=== PATIENT | female | born 1935 | race Caucasian/White ===

== ENCOUNTER 2020-03-10 15:01 | Emergency (ER) | payer OTHER ==
[~2020-03-10] VITALS: Ht 160 cm; Wt 63.5 kg
[2020-03-10] MEDS ORDERED: SODIUM CHLORIDE 0.9% 1,000 ML IV ONE (15:15)
[2020-03-10 16:35] LABS: Basophils # (auto) 0 10 ^3/uL (0-0.2); Basophils % (auto) 0.2 % (0.0-2.0); Eosinophils # (auto) 0 10 ^3/uL (0-0.8); Hematocrit 29.1 % (36.0-46.0); Hemoglobin 9.5 g/dL (12.2-16.2); Lymphocytes # (auto) 0.5 10 ^3/uL (0.4-5.4); Lymphocytes % (auto) 7.8 % (10.0-50.0); Mean Corpuscular Hemoglobin 30.8 pg (28.0-32.0); Mean Corpuscular Hgb Conc. 32.8 g/dL (32.0-36.0); Monocytes # (auto) 0.1 10 ^3/uL (0-1.3); Monocytes % (auto) 1.6 % (0.0-12.0); Neutrophils # (auto) 5.9 10 ^3/uL (1.6-8.6); Neutrophils % (auto) 90.4 % (37.0-80.0); Platelet Count (auto) 239 10^3/uL (140-450); Red Cell Distribution Width 15.2 % (11.8-14.3); White Blood Cell 6.6 10^3/uL (4.4-10.8)
[2020-03-10 16:49] LABS: INR 1.06 (0.9-1.15); Partial Thromboplastin Time 26.4 sec (23.0-31.2)
[2020-03-10 16:52] LABS: Chloride 106 mmol/L (98-107); Potassium 4.3 mmol/L (3.5-5.1); Sodium 136 mmol/L (136-145)
[2020-03-10 17:11] LABS: Alanine Aminotransferase 8 U/L (13-56); Albumin 3.1 g/dL (3.4-5.0); Alkaline Phosphatase 40 U/L (45-117); Anion Gap 6 (5-15); Aspartate Aminotransferase 8 U/L (15-37); BUN/Creatinine Ratio 26.8; Bilirubin, Total 0.4 mg/dL (0.2-1.0); Blood Urea Nitrogen 19 mg/dL (7-18); Calcium 8.3 mg/dL (8.5-10.1); Carbon Dioxide 24 mmol/L (21-32); GFR African American 101 mL/min; GFR Non-African American 84 mL/min; Glucose 100 mg/dL (74-106); Total Protein 5.7 g/dL (6.4-8.2)
[2020-03-10 23:00] VITALS: BP 116/56
== END 2020-03-10 23:57 | disposition home or self-care (01) ==
LOC: ER 15:01 → EDBD 15:01 → ER 23:57
DX: K92.2 Gastrointestinal hemorrhage, unspecified (principal); I95.9 Hypotension, unspecified
CPT/HCPCS: 36415; 71045; 74176; 80053; 84484; 85025; 85610; 85730; 86850; 86900; 86901; 96360; 99285; J7030

== ENCOUNTER 2022-02-03 15:55 | Inpatient (IN) | payer OTHER ==
[~2022-02-03] VITALS: Ht 160 cm; Wt 36.5 kg
[2022-02-03] MEDS ORDERED: SODIUM CHLORIDE 0.9% 500 ML IVB ONE (16:15)
[2022-02-03 16:42] LABS: Basophils # (auto) 0 10 ^3/uL (0-0.2); Basophils % (auto) 0.1 % (0.0-2.0); Eosinophils # (auto) 0 10 ^3/uL (0-0.8); Hemoglobin 13.1 g/dL (12.2-16.2); Lymphocytes # (auto) 0.7 10 ^3/uL (0.4-5.4); Lymphocytes % (auto) 3.6 % (10.0-50.0); Mean Corpuscular Hemoglobin 27.5 pg (28.0-32.0); Mean Corpuscular Hgb Conc. 31.9 g/dL (32.0-36.0); Mean Corpuscular Volume 86.3 fL (80.0-100.0); Monocytes # (auto) 0.2 10 ^3/uL (0-1.3); Monocytes % (auto) 1.2 % (0.0-12.0); Neutrophils % (auto) 95.1 % (37.0-80.0); Red Blood Cells 4.76 10^6/uL (4.0-5.20); Red Cell Distribution Width 14.7 % (11.8-14.3)
[2022-02-03 17:00] LABS: Albumin 3.1 g/dL (3.4-5.0); Calcium 9.2 mg/dL (8.5-10.1); Potassium 4.5 mmol/L (3.5-5.1)
[2022-02-03 17:02] LABS: BUN/Creatinine Ratio 35.2; Bilirubin, Total 0.3 mg/dL (0.2-1.0); Total Protein 6.5 g/dL (6.4-8.2)
[2022-02-03] MEDS ORDERED: ALBUMIN 25% 100 ML IV ONE (22:00)
[2022-02-03] MEDS ORDERED: ACETAMINOPHEN 325 MG TAB PO PRN (22:00)
[2022-02-03] MEDS ORDERED: NITROGLYCERIN 0.4 MG SL TAB SL PRN (22:45)
[2022-02-03] MEDS ORDERED: MORPHINE SULFATE INJ 2 MG/ml SYRG IV PRN (22:45)
[2022-02-03] MEDS: MORPHINE SULFATE INJ 2 MG/ml SYRG IV PRN (22:46)
[2022-02-03] MEDS: ONDANSETRON HCL 4 MG/2 ML VIAL IV PRN (22:46)
[2022-02-03] MEDS: SODIUM CHLORIDE 0.9% 1,000 ML IV SCH (23:07)
[2022-02-03] MEDS: metroNIDAZOLE 500MG/100ML 100 ML IV SCH (23:07)
[2022-02-03] MEDS ORDERED: PANT40T PO (23:27)
[2022-02-03] MEDS ORDERED: GAB100C PO (23:27)
[2022-02-03] MEDS ORDERED: ALEN70TA74 PO (23:27)
[2022-02-03] MEDS ORDERED: ROSU1TAB15 PO (23:27)
[2022-02-03] MEDS ORDERED: ESCI5TAB33 PO (23:27)
[2022-02-03 23:57] VITALS: BP 109/52
[2022-02-04 05:14] VITALS: BP 102/50
[2022-02-04] MEDS: metroNIDAZOLE 500MG/100ML 100 ML IV SCH ×3 (06:34→22:51)
[2022-02-04 06:48] LABS: Basophils # (auto) 0 10 ^3/uL (0-0.2); Basophils % (auto) 0.2 % (0.0-2.0); Eosinophils # (auto) 0 10 ^3/uL (0-0.8); Eosinophils % (auto) 0.1 % (0.0-7.0); Hemoglobin 10.9 g/dL (12.2-16.2); Lymphocytes # (auto) 1.3 10 ^3/uL (0.4-5.4); Mean Corpuscular Hemoglobin 28.1 pg (28.0-32.0); Mean Corpuscular Volume 85.1 fL (80.0-100.0); Monocytes # (auto) 0.4 10 ^3/uL (0-1.3); Monocytes % (auto) 4.3 % (0.0-12.0); Neutrophils # (auto) 7.8 10 ^3/uL (1.6-8.6); Neutrophils % (auto) 81.4 % (37.0-80.0); Red Blood Cells 3.87 10^6/uL (4.0-5.20); Red Cell Distribution Width 14.7 % (11.8-14.3); White Blood Cell 9.6 10^3/uL (4.4-10.8)
[2022-02-04 06:54] LABS: Calcium 8.3 mg/dL (8.5-10.1); Potassium 4.2 mmol/L (3.5-5.1)
[2022-02-04 06:59] LABS: Albumin 3.1 g/dL (3.4-5.0); BUN/Creatinine Ratio 47.1; Bilirubin, Total 0.4 mg/dL (0.2-1.0); Total Protein 5.4 g/dL (6.4-8.2)
[2022-02-04 08:00] VITALS: BP 100/48
[2022-02-04 09:00] VITALS: BP 100/48
[2022-02-04] MEDS ORDERED: GASTROGRAFIN 120 ML SOL ONE (09:22)
[2022-02-04] MEDS: PANTOPRAZOLE 40 MG/10 ML VIAL INJ IV SCH (11:16)
[2022-02-04] MEDS: MORPHINE SULFATE INJ 2 MG/ml SYRG IV PRN (11:30)
[2022-02-04 13:00] VITALS: BP 117/57
[2022-02-04] MEDS: SODIUM CHLORIDE 0.9% 1,000 ML IV SCH (15:41)
[2022-02-04 16:59] VITALS: BP 125/56
[2022-02-04] MEDS ORDERED: cefTRIAXone 1GM/50ML D5W 50 ML IV ONE (21:15)
[2022-02-04 22:00] VITALS: BP 116/47
[2022-02-05 05:19] VITALS: BP 114/51
[2022-02-05] MEDS: metroNIDAZOLE 500MG/100ML 100 ML IV SCH ×3 (05:36→21:31)
[2022-02-05 05:48] LABS: Basophils # (auto) 0.1 10 ^3/uL (0-0.2); Basophils % (auto) 0.6 % (0.0-2.0); Eosinophils # (auto) 0 10 ^3/uL (0-0.8); Eosinophils % (auto) 0.1 % (0.0-7.0); Hematocrit 33.1 % (36.0-46.0); Hemoglobin 10.7 g/dL (12.2-16.2); Lymphocytes # (auto) 1.2 10 ^3/uL (0.4-5.4); Lymphocytes % (auto) 15.1 % (10.0-50.0); Mean Corpuscular Hemoglobin 27.8 pg (28.0-32.0); Mean Corpuscular Hgb Conc. 32.2 g/dL (32.0-36.0); Mean Corpuscular Volume 86.4 fL (80.0-100.0); Monocytes # (auto) 0.4 10 ^3/uL (0-1.3); Monocytes % (auto) 4.5 % (0.0-12.0); Neutrophils # (auto) 6.6 10 ^3/uL (1.6-8.6); Neutrophils % (auto) 79.7 % (37.0-80.0); Nucleated Red Blood Cells % 0.1 %; Red Blood Cells 3.83 10^6/uL (4.0-5.20); White Blood Cell 8.2 10^3/uL (4.4-10.8)
[2022-02-05 06:07] LABS: Albumin 2.9 g/dL (3.4-5.0); Calcium 8.2 mg/dL (8.5-10.1); Magnesium 1.7 mg/dL (1.6-2.6); Potassium 3.3 mmol/L (3.5-5.1)
[2022-02-05 06:11] LABS: BUN/Creatinine Ratio 45.2; Bilirubin, Total 0.3 mg/dL (0.2-1.0); Total Protein 5.3 g/dL (6.4-8.2)
[2022-02-05 09:00] VITALS: BP 110/53
[2022-02-05] MEDS: cefTRIAXone 1GM/50ML D5W 50 ML IV SCH (09:10)
[2022-02-05] MEDS: PANTOPRAZOLE 40 MG/10 ML VIAL INJ IV SCH (09:10)
[2022-02-05] MEDS: SODIUM CHLORIDE 0.9% 1,000 ML IV SCH ×2 (10:45→20:45)
[2022-02-05 12:55] VITALS: BP 114/50
[2022-02-05 13:24] LABS: Potassium 3.8 mmol/L (3.5-5.1)
[2022-02-05 13:30] LABS: BUN/Creatinine Ratio 43.8
[2022-02-05 17:00] VITALS: BP 111/53
[2022-02-05 22:00] VITALS: BP 102/33
[2022-02-06] MEDS: ONDANSETRON HCL 4 MG/2 ML VIAL IV PRN ×2 (00:25→05:17)
[2022-02-06 05:00] VITALS: BP 102/48
[2022-02-06] MEDS: metroNIDAZOLE 500MG/100ML 100 ML IV SCH ×3 (05:14→21:04)
[2022-02-06] MEDS: SODIUM CHLORIDE 0.9% 1,000 ML IV SCH ×2 (05:14→11:45)
[2022-02-06 06:02] LABS: Basophils # (auto) 0 10 ^3/uL (0-0.2); Basophils % (auto) 0.3 % (0.0-2.0); Eosinophils # (auto) 0 10 ^3/uL (0-0.8); Eosinophils % (auto) 0.3 % (0.0-7.0); Hematocrit 30.6 % (36.0-46.0); Lymphocytes # (auto) 1.1 10 ^3/uL (0.4-5.4); Lymphocytes % (auto) 16.8 % (10.0-50.0); Mean Corpuscular Hemoglobin 28.1 pg (28.0-32.0); Mean Corpuscular Hgb Conc. 32.5 g/dL (32.0-36.0); Mean Corpuscular Volume 86.3 fL (80.0-100.0); Monocytes # (auto) 0.3 10 ^3/uL (0-1.3); Monocytes % (auto) 4.8 % (0.0-12.0); Neutrophils % (auto) 77.8 % (37.0-80.0); Nucleated Red Blood Cells % 0.1 %; Red Blood Cells 3.55 10^6/uL (4.0-5.20); White Blood Cell 6.4 10^3/uL (4.4-10.8)
[2022-02-06 06:23] LABS: Calcium 7.6 mg/dL (8.5-10.1); Magnesium 1.7 mg/dL (1.6-2.6); Potassium 3.6 mmol/L (3.5-5.1)
[2022-02-06 06:25] LABS: BUN/Creatinine Ratio 36.7
[2022-02-06] MEDS: PANTOPRAZOLE 40 MG/10 ML VIAL INJ IV SCH (08:29)
[2022-02-06] MEDS: cefTRIAXone 1GM/50ML D5W 50 ML IV SCH (08:29)
[2022-02-06 09:00] VITALS: BP 112/47
[2022-02-06] MEDS: MAGNESIUM SULFATE 1GM/100ML 100 ML IV SCH ×2 (11:34→13:06)
[2022-02-06 13:00] VITALS: BP 108/46
[2022-02-06 16:55] VITALS: BP 137/61
[2022-02-06 22:10] VITALS: BP 126/62
[2022-02-07] MEDS: SODIUM CHLORIDE 0.9% 1,000 ML IV SCH (02:04)
[2022-02-07] MEDS: metroNIDAZOLE 500MG/100ML 100 ML IV SCH (05:06)
[2022-02-07 05:40] VITALS: BP 150/62
[2022-02-07 07:01] LABS: BUN/Creatinine Ratio 23.4; Calcium 7.5 mg/dL (8.5-10.1); Magnesium 2.3 mg/dL (1.6-2.6); Potassium 3.6 mmol/L (3.5-5.1)
[2022-02-07 08:10] VITALS: BP 113/62
[2022-02-07] MEDS: PANTOPRAZOLE 40 MG/10 ML VIAL INJ IV SCH (08:29)
[2022-02-07] MEDS: cefTRIAXone 1GM/50ML D5W 50 ML IV SCH (08:30)
[2022-02-07 09:00] VITALS: BP 113/62
[2022-02-07 13:00] VITALS: BP 157/71
== END 2022-02-07 13:49 | disposition home or self-care (01) | DRG 389 ==
LOC: EDBD 15:55 → ER 15:55 → OVERFLOW 22:43 → CENTRAL 23:19
PROVIDERS: ADMIT Nurse Practitioner Family; ATTEND Internal Medicine Geriatric Medicine
PROC: 0D9670Z Drainage of Stomach with Drainage Device, Via Natural or Artificial Opening (ICD-10-PCS; principal; 2022-02-03)
DX: K56.609 Unspecified intestinal obstruction, unspecified as to partial versus complete obstruction (principal); E44.0 Moderate protein-calorie malnutrition; E87.1 Hypo-osmolality and hyponatremia; D72.829 Elevated white blood cell count, unspecified; K57.30 Diverticulosis of large intestine without perforation or abscess without bleeding; K44.9 Diaphragmatic hernia without obstruction or gangrene; G62.9 Polyneuropathy, unspecified; Z20.822 Contact with and (suspected) exposure to COVID-19; Z96.642 Presence of left artificial hip joint; E78.5 Hyperlipidemia, unspecified; K21.9 Gastro-esophageal reflux disease without esophagitis; E87.6 Hypokalemia; D64.9 Anemia, unspecified; Z88.5 Allergy status to narcotic agent; Z88.8 Allergy status to other drugs, medicaments and biological substances; Z90.710 Acquired absence of both cervix and uterus
CPT/HCPCS: 36415; 71045; 74176; 74250; 80048; 80053; 80061; 82150; 83690; 83735; 85025; 87040; 87077; 87186; 96361; 96365; C9113; G0378; J0696; J2405; J3490; P9047

== ENCOUNTER 2022-02-11 10:17 | Inpatient (IN) | payer OTHER ==
[~2022-02-11] VITALS: Ht 160 cm; Wt 44.7 kg
[~2022-02-11 10:17] MED LIST: ALEN70TA74 PO; ESCI5TAB33 PO; GAB100C PO; PANT40T PO; ROSU1TAB15 PO
[2022-02-11] MEDS ORDERED: ONDANSETRON HCL 4 MG/2 ML VIAL IV ONE (11:15)
[2022-02-11] MEDS ORDERED: SODIUM CHLORIDE 0.9% 500 ML IVB ONE (11:15)
[2022-02-11] MEDS ORDERED: MORPHINE SULFATE 4 MG/ML SYR/VIAL IV ONE (11:15)
[2022-02-11 11:23] LABS: Basophils # (auto) 0 10 ^3/uL (0-0.2); Basophils % (auto) 0.4 % (0.0-2.0); Eosinophils # (auto) 0 10 ^3/uL (0-0.8); Eosinophils % (auto) 0.1 % (0.0-7.0); Hematocrit 42.7 % (36.0-46.0); Hemoglobin 13.7 g/dL (12.2-16.2); Lymphocytes # (auto) 1.2 10 ^3/uL (0.4-5.4); Lymphocytes % (auto) 13.7 % (10.0-50.0); Mean Corpuscular Hemoglobin 27.8 pg (28.0-32.0); Mean Corpuscular Hgb Conc. 32.2 g/dL (32.0-36.0); Mean Corpuscular Volume 86.4 fL (80.0-100.0); Monocytes # (auto) 0.3 10 ^3/uL (0-1.3); Neutrophils # (auto) 7.5 10 ^3/uL (1.6-8.6); Neutrophils % (auto) 82.8 % (37.0-80.0); Red Blood Cells 4.94 10^6/uL (4.0-5.20); Red Cell Distribution Width 15.5 % (11.8-14.3); White Blood Cell 9.1 10^3/uL (4.4-10.8)
[2022-02-11 11:38] LABS: INR 0.98 (0.9-1.15); Partial Thromboplastin Time 25.4 sec (24.6-33.4)
[2022-02-11 11:50] LABS: Albumin 2.8 g/dL (3.4-5.0); Calcium 8.6 mg/dL (8.5-10.1); Potassium 3.9 mmol/L (3.5-5.1)
[2022-02-11 12:41] LABS: BUN/Creatinine Ratio 16.7
[2022-02-11 12:42] LABS: Bilirubin, Total 0.3 mg/dL (0.2-1.0); Total Protein 6.2 g/dL (6.4-8.2)
[2022-02-11] MEDS: SODIUM CHLORIDE 0.9% 1,000 ML IV SCH (16:28)
[2022-02-11] MEDS: ONDANSETRON HCL 4 MG/2 ML VIAL IV PRN (16:28)
[2022-02-11] MEDS ORDERED: CLINIMIX PER PHARMACY 0 ML IV SCH (22:15)
[2022-02-11 23:42] VITALS: BP 107/35
[2022-02-12 05:24] LABS: Basophils # (auto) 0 10 ^3/uL (0-0.2); Basophils % (auto) 0.9 % (0.0-2.0); Eosinophils # (auto) 0 10 ^3/uL (0-0.8); Eosinophils % (auto) 0.3 % (0.0-7.0); Hematocrit 33.1 % (36.0-46.0); Hemoglobin 10.8 g/dL (12.2-16.2); Lymphocytes # (auto) 1.3 10 ^3/uL (0.4-5.4); Lymphocytes % (auto) 24.5 % (10.0-50.0); Mean Corpuscular Hemoglobin 28.4 pg (28.0-32.0); Mean Corpuscular Hgb Conc. 32.7 g/dL (32.0-36.0); Mean Corpuscular Volume 86.8 fL (80.0-100.0); Monocytes # (auto) 0.3 10 ^3/uL (0-1.3); Monocytes % (auto) 6.1 % (0.0-12.0); Neutrophils # (auto) 3.5 10 ^3/uL (1.6-8.6); Neutrophils % (auto) 68.2 % (37.0-80.0); Nucleated Red Blood Cells % 0.1 %; Red Blood Cells 3.81 10^6/uL (4.0-5.20); Red Cell Distribution Width 15.7 % (11.8-14.3); White Blood Cell 5.1 10^3/uL (4.4-10.8)
[2022-02-12 05:34] VITALS: BP 109/59
[2022-02-12] MEDS: SODIUM CHLORIDE 0.9% 1,000 ML IV SCH ×4 (05:38→21:42)
[2022-02-12 05:51] LABS: BUN/Creatinine Ratio 23.4; Calcium 7.8 mg/dL (8.5-10.1)
[2022-02-12 08:00] VITALS: BP 114/53
[2022-02-12 09:36] LABS: Albumin 2.4 g/dL (3.4-5.0); Calcium 8.1 mg/dL (8.5-10.1); Magnesium 2.2 mg/dL (1.6-2.6)
[2022-02-12 09:39] LABS: Bilirubin, Total 0.3 mg/dL (0.2-1.0); Phosphorus 4.3 mg/dL (2.5-4.90); Total Protein 4.8 g/dL (6.4-8.2)
[2022-02-12] MEDS ORDERED: GASTROGRAFIN 30 ML SOL ONE (10:09)
[2022-02-12] MEDS: PANTOPRAZOLE 40 MG/10 ML VIAL INJ IV SCH (10:10)
[2022-02-12] MEDS ORDERED: AZITHROMYCIN 500MG/ 250ML 250 ML IV ONE (10:45)
[2022-02-12] MEDS ORDERED: cefTRIAXone 1GM/50ML D5W 50 ML IV ONE (10:45)
[2022-02-12] MEDS ORDERED: AMINO ACID INFUSION IN D10W 1,000 ML IV NR (11:15)
[2022-02-12] MEDS ORDERED: ENOXAPARIN SOD 30 MG/0.3 ML SYRINGE SC ONE (11:30)
[2022-02-12] MEDS: InsuLIN REG 1unit/0.01ml Soln (100units/ml) SC SCH ×3 (12:00→23:49)
[2022-02-12 12:15] VITALS: BP 110/54
[2022-02-12] MEDS: ACCU-CHEK COMFORT CURVE STRIP VI SCH ×3 (12:16→23:49)
[2022-02-12] MEDS: DEXTROSE (50%) 50ML SYRG IV SCH (12:36)
[2022-02-12] MEDS: ONDANSETRON HCL 4 MG/2 ML VIAL IV PRN (14:45)
[2022-02-12 17:00] VITALS: BP 120/69
[2022-02-12] MEDS: MORPHINE SULFATE INJ 2 MG/ml SYRG IV PRN (18:00)
[2022-02-12] MEDS: AMINO ACID INFUSION IN D10W 1,000 ML IV NR (20:43)
[2022-02-12 22:00] VITALS: BP 116/62
[2022-02-13 05:00] VITALS: BP 109/59
[2022-02-13] MEDS: ACCU-CHEK COMFORT CURVE STRIP VI SCH ×4 (05:15→23:17)
[2022-02-13] MEDS: InsuLIN REG 1unit/0.01ml Soln (100units/ml) SC SCH ×4 (05:15→23:18)
[2022-02-13] MEDS: SODIUM CHLORIDE 0.9% 1,000 ML IV SCH (05:56)
[2022-02-13 06:01] LABS: Basophils # (auto) 0 10 ^3/uL (0-0.2); Basophils % (auto) 0.7 % (0.0-2.0); Eosinophils # (auto) 0 10 ^3/uL (0-0.8); Eosinophils % (auto) 0.3 % (0.0-7.0); Hematocrit 32.4 % (36.0-46.0); Hemoglobin 10.3 g/dL (12.2-16.2); Lymphocytes # (auto) 1.1 10 ^3/uL (0.4-5.4); Lymphocytes % (auto) 21.8 % (10.0-50.0); Mean Corpuscular Hemoglobin 28.1 pg (28.0-32.0); Mean Corpuscular Hgb Conc. 31.8 g/dL (32.0-36.0); Mean Corpuscular Volume 88.4 fL (80.0-100.0); Monocytes # (auto) 0.3 10 ^3/uL (0-1.3); Monocytes % (auto) 5.9 % (0.0-12.0); Neutrophils # (auto) 3.7 10 ^3/uL (1.6-8.6); Neutrophils % (auto) 71.3 % (37.0-80.0); Red Blood Cells 3.67 10^6/uL (4.0-5.20); White Blood Cell 5.2 10^3/uL (4.4-10.8)
[2022-02-13 06:28] LABS: Albumin 2.2 g/dL (3.4-5.0); BUN/Creatinine Ratio 28.3; Bilirubin, Total 0.3 mg/dL (0.2-1.0); Calcium 7.8 mg/dL (8.5-10.1); Magnesium 2.1 mg/dL (1.6-2.6); Phosphorus 3.8 mg/dL (2.5-4.90); Total Protein 4.5 g/dL (6.4-8.2)
[2022-02-13 08:05] VITALS: BP 104/51
[2022-02-13 09:51] VITALS: BP 128/60
[2022-02-13] MEDS: cefTRIAXone 1GM/50ML D5W 50 ML IV SCH (10:48)
[2022-02-13] MEDS: ENOXAPARIN SOD 30 MG/0.3 ML SYRINGE SC SCH (10:51)
[2022-02-13] MEDS: PANTOPRAZOLE 40 MG/10 ML VIAL INJ IV SCH (10:51)
[2022-02-13] MEDS: AZITHROMYCIN 500MG/ 250ML 250 ML IV SCH (12:32)
[2022-02-13 13:00] VITALS: BP 133/62
[2022-02-13 16:35] VITALS: BP 117/51
[2022-02-13] MEDS: AMINO ACID INFUSION IN D10W 1,000 ML IV NR (21:24)
[2022-02-13] MEDS: MORPHINE SULFATE INJ 2 MG/ml SYRG IV PRN (21:34)
[2022-02-13 22:00] VITALS: BP 128/56
[2022-02-14] VITALS (7 sets, daily range): BP systolic 107–141; BP diastolic 47–68
[2022-02-14] MEDS: MORPHINE SULFATE INJ 2 MG/ml SYRG IV PRN ×2 (02:18→22:49)
[2022-02-14 05:56] LABS: Basophils # (auto) 0 10 ^3/uL (0-0.2); Basophils % (auto) 0.6 % (0.0-2.0); Eosinophils # (auto) 0 10 ^3/uL (0-0.8); Eosinophils % (auto) 0.8 % (0.0-7.0); Hematocrit 31.6 % (36.0-46.0); Hemoglobin 10.4 g/dL (12.2-16.2); Lymphocytes # (auto) 1.2 10 ^3/uL (0.4-5.4); Lymphocytes % (auto) 27.2 % (10.0-50.0); Mean Corpuscular Hemoglobin 28.4 pg (28.0-32.0); Mean Corpuscular Hgb Conc. 32.8 g/dL (32.0-36.0); Mean Corpuscular Volume 86.4 fL (80.0-100.0); Monocytes # (auto) 0.3 10 ^3/uL (0-1.3); Monocytes % (auto) 6.8 % (0.0-12.0); Neutrophils # (auto) 2.9 10 ^3/uL (1.6-8.6); Neutrophils % (auto) 64.6 % (37.0-80.0); Red Blood Cells 3.65 10^6/uL (4.0-5.20); Red Cell Distribution Width 15.7 % (11.8-14.3); White Blood Cell 4.5 10^3/uL (4.4-10.8)
[2022-02-14] MEDS: InsuLIN REG 1unit/0.01ml Soln (100units/ml) SC SCH ×4 (06:00→23:27)
[2022-02-14 06:12] LABS: Albumin 2.1 g/dL (3.4-5.0); Calcium 7.4 mg/dL (8.5-10.1); Magnesium 1.7 mg/dL (1.6-2.6); Potassium 3.5 mmol/L (3.5-5.1)
[2022-02-14 06:15] LABS: BUN/Creatinine Ratio 43.1
[2022-02-14 06:17] LABS: Bilirubin, Total 0.3 mg/dL (0.2-1.0); Phosphorus 2.5 mg/dL (2.5-4.90); Total Protein 4.5 g/dL (6.4-8.2)
[2022-02-14] MEDS: ACCU-CHEK COMFORT CURVE STRIP VI SCH ×4 (06:56→23:27)
[2022-02-14] MEDS: cefTRIAXone 1GM/50ML D5W 50 ML IV SCH (09:14)
[2022-02-14] MEDS: PANTOPRAZOLE 40 MG/10 ML VIAL INJ IV SCH (09:14)
[2022-02-14] MEDS: ENOXAPARIN SOD 30 MG/0.3 ML SYRINGE SC SCH (10:00)
[2022-02-14] MEDS: AZITHROMYCIN 500MG/ 250ML 250 ML IV SCH (11:53)
[2022-02-14] MEDS ORDERED: POTASSIUM PHOSPHATE 22 MEQ in SODIUM CHL 0.9% 100 ML IV ONE (18:00)
[2022-02-14] MEDS: AMINO ACID INFUSION IN D10W 1,000 ML IV NR (21:03)
[2022-02-15] VITALS (47 sets, daily range): BP systolic 65–168; BP diastolic 36–77
[2022-02-15] MEDS: ACCU-CHEK COMFORT CURVE STRIP VI SCH ×4 (05:52→23:50)
[2022-02-15] MEDS: InsuLIN REG 1unit/0.01ml Soln (100units/ml) SC SCH ×4 (05:52→23:51)
[2022-02-15 06:40] LABS: Basophils # (auto) 0 10 ^3/uL (0-0.2); Basophils % (auto) 0.6 % (0.0-2.0); Eosinophils # (auto) 0 10 ^3/uL (0-0.8); Eosinophils % (auto) 0.8 % (0.0-7.0); Hematocrit 35.5 % (36.0-46.0); Hemoglobin 11.7 g/dL (12.2-16.2); Lymphocytes # (auto) 1.2 10 ^3/uL (0.4-5.4); Lymphocytes % (auto) 21.9 % (10.0-50.0); Mean Corpuscular Hemoglobin 28.3 pg (28.0-32.0); Mean Corpuscular Volume 85.6 fL (80.0-100.0); Monocytes # (auto) 0.4 10 ^3/uL (0-1.3); Neutrophils # (auto) 3.7 10 ^3/uL (1.6-8.6); Neutrophils % (auto) 69.7 % (37.0-80.0); Nucleated Red Blood Cells % 0.1 %; Red Blood Cells 4.14 10^6/uL (4.0-5.20); Red Cell Distribution Width 15.9 % (11.8-14.3); White Blood Cell 5.3 10^3/uL (4.4-10.8)
[2022-02-15 06:58] LABS: Albumin 2.2 g/dL (3.4-5.0); Calcium 7.6 mg/dL (8.5-10.1); Magnesium 1.9 mg/dL (1.6-2.6); Potassium 3.5 mmol/L (3.5-5.1)
[2022-02-15 07:01] LABS: BUN/Creatinine Ratio 35.6; Bilirubin, Total 0.3 mg/dL (0.2-1.0); Phosphorus 2.5 mg/dL (2.5-4.90); Total Protein 4.8 g/dL (6.4-8.2)
[2022-02-15] MEDS: ENOXAPARIN SOD 30 MG/0.3 ML SYRINGE SC SCH (07:29)
[2022-02-15] MEDS: cefTRIAXone 1GM/50ML D5W 50 ML IV SCH (09:43)
[2022-02-15] MEDS: PANTOPRAZOLE 40 MG/10 ML VIAL INJ IV SCH (09:43)
[2022-02-15] MEDS ORDERED: POTASSIUM PHOSPHATE 26.4 MEQ in SODIUM CHL 0.9% 100 ML IV ONE (10:00)
[2022-02-15] MEDS: AZITHROMYCIN 500MG/ 250ML 250 ML IV SCH (10:27)
[2022-02-15] MEDS ORDERED: fentaNYL CITRATE 100 MCG/2 ML VL ONE (12:25)
[2022-02-15] MEDS ORDERED: MORPHINE SULF PF 5 MG/10 ML VIAL ONE ×2 (12:25→13:48)
[2022-02-15] MEDS ORDERED: MIDAZOLAM HCL 2MG/2ML 2ml VIAL (1mg/ml) ONE ×3 (12:26→14:02)
[2022-02-15] MEDS ORDERED: fentaNYL CITRATE 5 ML ONE (12:26)
[2022-02-15] MEDS ORDERED: SUCCINYLCHOLINE CHLORIDE 20 MG/ML 10ML VIAL IV ONE (12:33)
[2022-02-15] MEDS ORDERED: metroNIDAZOLE 500MG/100ML 100 ML IV ONE (12:49)
[2022-02-15] MEDS ORDERED: CALCIUM CHLOR(10%) 100MG/ML 10ML SYRINGE IV ONE (13:36)
[2022-02-15] MEDS ORDERED: NOREPINEPHRINE 8 MG/250ML KIT 250 ML IV SCH (13:45)
[2022-02-15] MEDS ORDERED: NOREPINEPHRINE 8 MG/250ML KIT 250 ML IV ONE (13:45)
[2022-02-15] MEDS ORDERED: POVIDONE IODINE 10 % TOPICAL OINT 30GM TOP ONE (14:30)
[2022-02-15] MEDS: MIDAZOLAM DRIP 50 mg/50mL 50 ML IV SCH (15:00)
[2022-02-15] MEDS: D5W/SOD CHL 0.45%/KCL 20MEQ 1,000 ML IV SCH ×2 (15:36→23:32)
[2022-02-15] MEDS: fentaNYL Drip 2500mCg/250mlNS 250 ML IV SCH (15:40)
[2022-02-15] MEDS ORDERED: DexAMETHasone SOD PHOS 10MG/1ML VIAL INJ IV ONE (16:47)
[2022-02-15] MEDS ORDERED: PHENYLEPHRINE HCL 10 MG/ML VL IV ONE (16:47)
[2022-02-15] MEDS ORDERED: KETAMINE 50mg/ML 10ml Vial (500mg/10ml) IV ONE (16:47)
[2022-02-15 20:06] LABS: Eosinophils # (auto) 0 10 ^3/uL (0-0.8); Hemoglobin 12.9 g/dL (12.2-16.2); Monocytes # (auto) 0.8 10 ^3/uL (0-1.3); White Blood Cell 13.8 10^3/uL (4.4-10.8)
[2022-02-15 20:13] LABS: Basophils # (auto) 0 10 ^3/uL (0-0.2); Basophils % (auto) 0.3 % (0.0-2.0); Hematocrit 41.4 % (36.0-46.0); Lymphocytes # (auto) 1.1 10 ^3/uL (0.4-5.4); Mean Corpuscular Hemoglobin 27.4 pg (28.0-32.0); Mean Corpuscular Hgb Conc. 31.2 g/dL (32.0-36.0); Mean Corpuscular Volume 87.8 fL (80.0-100.0); Monocytes % (auto) 6.1 % (0.0-12.0); Neutrophils # (auto) 11.8 10 ^3/uL (1.6-8.6); Neutrophils % (auto) 85.6 % (37.0-80.0); Red Blood Cells 4.71 10^6/uL (4.0-5.20); Red Cell Distribution Width 16.3 % (11.8-14.3)
[2022-02-15] MEDS: AMINO ACID INFUSION IN D10W 1,000 ML IV NR (22:08)
[2022-02-16] VITALS (103 sets, daily range): BP systolic 64–150; BP diastolic 34–66
[2022-02-16 04:40] LABS: Basophils # (auto) 0 10 ^3/uL (0-0.2); Basophils % (auto) 0.2 % (0.0-2.0); Eosinophils # (auto) 0 10 ^3/uL (0-0.8); Hemoglobin 11.6 g/dL (12.2-16.2); Lymphocytes # (auto) 0.5 10 ^3/uL (0.4-5.4); Lymphocytes % (auto) 3.3 % (10.0-50.0); Mean Corpuscular Hemoglobin 27.8 pg (28.0-32.0); Mean Corpuscular Hgb Conc. 31.4 g/dL (32.0-36.0); Mean Corpuscular Volume 88.6 fL (80.0-100.0); Monocytes # (auto) 0.5 10 ^3/uL (0-1.3); Monocytes % (auto) 3.3 % (0.0-12.0); Neutrophils % (auto) 93.2 % (37.0-80.0); Red Blood Cells 4.17 10^6/uL (4.0-5.20); Red Cell Distribution Width 17.4 % (11.8-14.3)
[2022-02-16 04:51] LABS: Albumin 2.1 g/dL (3.4-5.0); BUN/Creatinine Ratio 22.7; Calcium 7.5 mg/dL (8.5-10.1); Magnesium 1.5 mg/dL (1.6-2.6); Potassium 4.6 mmol/L (3.5-5.1)
[2022-02-16 04:55] LABS: Bilirubin, Total 0.2 mg/dL (0.2-1.0); Phosphorus 4.6 mg/dL (2.5-4.90); Total Protein 4.5 g/dL (6.4-8.2)
[2022-02-16] MEDS: NOREPINEPHRINE 8 MG/250ML KIT 250 ML IV SCH ×3 (05:55→23:53)
[2022-02-16] MEDS: ACCU-CHEK COMFORT CURVE STRIP VI SCH ×3 (05:55→17:28)
[2022-02-16] MEDS: InsuLIN REG 1unit/0.01ml Soln (100units/ml) SC SCH ×3 (05:56→17:59)
[2022-02-16] MEDS ORDERED: SODIUM CHLORIDE 0.9% 500 ML IV ONE (06:45)
[2022-02-16] MEDS: MAGNESIUM SULFATE 1GM/100ML 100 ML IV SCH ×2 (07:27→08:54)
[2022-02-16] MEDS ORDERED: SODIUM CHLORIDE 0.9% 1,450 ML IV ONE (08:15)
[2022-02-16] MEDS ORDERED: TPN PER PHARMACY 0 ML IV SCH (08:15)
[2022-02-16] MEDS ORDERED: SODIUM BICARBONATE 8.4 % INJ 50ML VIAL IV ONE ×3 (08:15→13:00)
[2022-02-16] MEDS ORDERED: D5W/SOD CHLO 0.9% 1,000 ML IV ONE (08:30)
[2022-02-16] MEDS: PANTOPRAZOLE 40 MG/10 ML VIAL INJ IV SCH (09:17)
[2022-02-16] MEDS: cefTRIAXone 1GM/50ML D5W 50 ML IV SCH (09:17)
[2022-02-16] MEDS ORDERED: SODIUM CHLORIDE 0.9% 1,000 ML IV SCH (09:45)
[2022-02-16] MEDS: AZITHROMYCIN 500MG/ 250ML 250 ML IV SCH (10:30)
[2022-02-16 10:37] LABS: INR 1.01 (0.9-1.15); Partial Thromboplastin Time 33.2 sec (24.6-33.4)
[2022-02-16] MEDS ORDERED: MAGNESIUM SULFATE 1GM/100ML 100 ML IV ONE (11:30)
[2022-02-16] MEDS ORDERED: LIDOCAINE 1% (LOCAL ANESTH.) PF 5ml SDV ID ONE (12:15)
[2022-02-16] MEDS: ENOXAPARIN SOD 30 MG/0.3 ML SYRINGE SC SCH (12:21)
[2022-02-16] MEDS: ALBUMIN 25% 100 ML IV SCH ×2 (12:35→17:28)
[2022-02-16 13:20] LABS: Protein, Urine 25.9 mg/dL (0.0-11.9)
[2022-02-16 13:25] LABS: Urine Bacteria NONE SEEN /hpf (None Seen); Urine Blood 2+ /uL (Negative); Urine Hyaline Cast FEW /lpf (0 - 2); Urine Specific Gravity 1.003 (1.001-1.035); Urine WBC 6 /hpf (0 - 5)
[2022-02-16] MEDS: SODIUM BICARB 50ML SYR 100 ML in SOD CHL 0.45% 1,000 ML IV SCH ×2 (13:42→23:55)
[2022-02-16 13:49] LABS: Creatinine, Urine < 5.0 mg/dL (30.0-125.0)
[2022-02-16] MEDS ORDERED: FUROSEMIDE 40 MG/4 ML VIAL IV ONE (14:00)
[2022-02-16] MEDS: fentaNYL Drip 2500mCg/250mlNS 250 ML IV SCH (15:00)
[2022-02-16] MEDS: MIDAZOLAM DRIP 50 mg/50mL 50 ML IV SCH (15:00)
[2022-02-16] MEDS ORDERED: TPN PER PHARMACY IV NR ×9 (20:00)
[2022-02-16] MEDS: SODIUM CHLOR 0.9% PF (SALINE LOCK) 10ML VIAL/SYR IV SCH (23:54)
[2022-02-17] VITALS (103 sets, daily range): BP systolic 93–149; BP diastolic 34–96
[2022-02-17] MEDS: DEXTROSE (50%) 50ML SYRG IV SCH ×2 (00:38→08:40)
[2022-02-17 01:06] LABS: Hemoglobin 7.5 g/dL (12.2-16.2)
[2022-02-17 01:08] LABS: Basophils # (auto) 0 10 ^3/uL (0-0.2); Basophils % (auto) 0.2 % (0.0-2.0); Eosinophils # (auto) 0 10 ^3/uL (0-0.8); Eosinophils % (auto) 0.1 % (0.0-7.0); Hematocrit 22.4 % (36.0-46.0); Lymphocytes # (auto) 0.8 10 ^3/uL (0.4-5.4); Lymphocytes % (auto) 8.4 % (10.0-50.0); Mean Corpuscular Hemoglobin 28.8 pg (28.0-32.0); Mean Corpuscular Hgb Conc. 33.3 g/dL (32.0-36.0); Mean Corpuscular Volume 86.6 fL (80.0-100.0); Monocytes # (auto) 0.3 10 ^3/uL (0-1.3); Monocytes % (auto) 3.5 % (0.0-12.0); Neutrophils # (auto) 7.9 10 ^3/uL (1.6-8.6); Neutrophils % (auto) 87.8 % (37.0-80.0); Red Blood Cells 2.59 10^6/uL (4.0-5.20); Red Cell Distribution Width 16.3 % (11.8-14.3)
[2022-02-17] MEDS: ACCU-CHEK COMFORT CURVE STRIP VI SCH ×5 (01:09→19:57)
[2022-02-17 01:23] LABS: Albumin 2.8 g/dL (3.4-5.0); Calcium 7.3 mg/dL (8.5-10.1); Magnesium 1.9 mg/dL (1.6-2.6)
[2022-02-17 01:25] LABS: BUN/Creatinine Ratio 25.8
[2022-02-17 01:28] LABS: Bilirubin, Total 0.2 mg/dL (0.2-1.0); Total Protein 4.6 g/dL (6.4-8.2)
[2022-02-17 01:32] LABS: Potassium 2.9 mmol/L (3.5-5.1)
[2022-02-17 01:54] LABS: Phosphorus 2.2 mg/dL (2.5-4.90)
[2022-02-17] MEDS: ALBUMIN 25% 100 ML IV SCH (01:57)
[2022-02-17] MEDS ORDERED: POTASSIUM CHL 20MEQ/100ML 100 ML IV ONE (02:30)
[2022-02-17 07:44] LABS: Basophils # (auto) 0 10 ^3/uL (0-0.2); Basophils % (auto) 0.1 % (0.0-2.0); Eosinophils # (auto) 0 10 ^3/uL (0-0.8); Eosinophils % (auto) 0.1 % (0.0-7.0); Hematocrit 23.4 % (36.0-46.0); Hemoglobin 7.8 g/dL (12.2-16.2); Lymphocytes # (auto) 0.8 10 ^3/uL (0.4-5.4); Lymphocytes % (auto) 6.9 % (10.0-50.0); Mean Corpuscular Hemoglobin 29.2 pg (28.0-32.0); Mean Corpuscular Hgb Conc. 33.4 g/dL (32.0-36.0); Mean Corpuscular Volume 87.5 fL (80.0-100.0); Monocytes # (auto) 0.8 10 ^3/uL (0-1.3); Monocytes % (auto) 6.9 % (0.0-12.0); Neutrophils # (auto) 9.4 10 ^3/uL (1.6-8.6); Red Blood Cells 2.68 10^6/uL (4.0-5.20); Red Cell Distribution Width 16.6 % (11.8-14.3); White Blood Cell 10.9 10^3/uL (4.4-10.8)
[2022-02-17 07:59] LABS: Albumin 3.2 g/dL (3.4-5.0); Calcium 7.6 mg/dL (8.5-10.1); Potassium 3.1 mmol/L (3.5-5.1)
[2022-02-17 08:02] LABS: BUN/Creatinine Ratio 26.9; Bilirubin, Total 0.4 mg/dL (0.2-1.0)
[2022-02-17] MEDS: cefTRIAXone 1GM/50ML D5W 50 ML IV SCH (08:39)
[2022-02-17] MEDS: fentaNYL Drip 2500mCg/250mlNS 250 ML IV SCH (09:07)
[2022-02-17] MEDS: MIDAZOLAM DRIP 50 mg/50mL 50 ML IV SCH (09:22)
[2022-02-17] MEDS: SODIUM CHLOR 0.9% PF (SALINE LOCK) 10ML VIAL/SYR IV SCH ×2 (10:00→22:00)
[2022-02-17] MEDS: ENOXAPARIN SOD 30 MG/0.3 ML SYRINGE SC SCH (10:00)
[2022-02-17] MEDS ORDERED: DEXTROSE (50%) 50ML SYRG IV PRN (10:15)
[2022-02-17] MEDS: PANTOPRAZOLE 40 MG/10 ML VIAL INJ IV SCH (10:21)
[2022-02-17] MEDS: AZITHROMYCIN 500MG/ 250ML 250 ML IV SCH (10:22)
[2022-02-17] MEDS ORDERED: POTASSIUM PHOSPHATE 44 MEQ in D5W 5% 250 ML IV ONE (12:15)
[2022-02-17] MEDS: InsuLIN REG 1unit/0.01ml Soln (100units/ml) SC SCH ×4 (12:30→19:57)
[2022-02-17] MEDS: NOREPINEPHRINE 8 MG/250ML KIT 250 ML IV SCH (13:00)
[2022-02-17] MEDS ORDERED: AMINO ACID INFUSION IN D10W 1,000 ML IV NR (13:15)
[2022-02-17] MEDS ORDERED: POTASSIUM CHLORIDE 20 MEQ in D5W/LACTATED RINGERS 1,000 ML IV SCH (13:30)
[2022-02-17] MEDS ORDERED: TPN PER PHARMACY IV NR ×8 (20:00)
[2022-02-18] VITALS (93 sets, daily range): BP systolic 62–158; BP diastolic 30–70
[2022-02-18] MEDS: ACCU-CHEK COMFORT CURVE STRIP VI SCH ×6 (00:17→20:08)
[2022-02-18 03:19] LABS: Hemoglobin 8.3 g/dL (12.2-16.2); Lymphocytes # (auto) 0.6 10 ^3/uL (0.4-5.4); Monocytes # (auto) 0.2 10 ^3/uL (0-1.3); White Blood Cell 7.1 10^3/uL (4.4-10.8)
[2022-02-18 03:22] LABS: Basophils # (auto) 0.1 10 ^3/uL (0-0.2); Basophils % (auto) 0.7 % (0.0-2.0); Eosinophils # (auto) 0.1 10 ^3/uL (0-0.8); Eosinophils % (auto) 0.9 % (0.0-7.0); Hematocrit 25.1 % (36.0-46.0); Lymphocytes % (auto) 8.1 % (10.0-50.0); Mean Corpuscular Hemoglobin 29.5 pg (28.0-32.0); Mean Corpuscular Volume 89.4 fL (80.0-100.0); Monocytes % (auto) 3.5 % (0.0-12.0); Neutrophils # (auto) 6.1 10 ^3/uL (1.6-8.6); Neutrophils % (auto) 86.8 % (37.0-80.0); Nucleated Red Blood Cells % 0.1 %; Red Blood Cells 2.81 10^6/uL (4.0-5.20); Red Cell Distribution Width 16.9 % (11.8-14.3)
[2022-02-18] MEDS: InsuLIN REG 1unit/0.01ml Soln (100units/ml) SC SCH ×6 (04:00→20:00)
[2022-02-18 07:25] LABS: Alanine Aminotransferase 13 U/L (13-56); Alkaline Phosphatase 39 U/L (45-117); Anion Gap 6 (5-15); Aspartate Aminotransferase 24 U/L (15-37); BUN/Creatinine Ratio 37.7; Blood Urea Nitrogen 29 mg/dL (7-18); Carbon Dioxide 29 mmol/L (21-32); Chloride 101 mmol/L (98-107); GFR African American 92 mL/min; GFR Non-African American 76 mL/min; Glucose 107 mg/dL (74-106); Potassium 4.3 mmol/L (3.5-5.1); Sodium 136 mmol/L (136-145)
[2022-02-18 07:26] LABS: Albumin 2.3 g/dL (3.4-5.0); Bilirubin, Total 0.3 mg/dL (0.2-1.0); Calcium 7.2 mg/dL (8.5-10.1); Phosphorus 4.1 mg/dL (2.5-4.90); Triglycerides 63 mg/dL (< 150)
[2022-02-18] MEDS: cefTRIAXone 1GM/50ML D5W 50 ML IV SCH (09:24)
[2022-02-18] MEDS: PANTOPRAZOLE 40 MG/10 ML VIAL INJ IV SCH (09:37)
[2022-02-18] MEDS: ENOXAPARIN SOD 30 MG/0.3 ML SYRINGE SC SCH (09:37)
[2022-02-18] MEDS: AZITHROMYCIN 500MG/ 250ML 250 ML IV SCH (09:37)
[2022-02-18] MEDS: SODIUM CHLOR 0.9% PF (SALINE LOCK) 10ML VIAL/SYR IV SCH ×2 (09:38→22:00)
[2022-02-18] MEDS: NICOTINE 14 MG/24HR TOPICAL PATCH TD SCH (09:38)
[2022-02-18] MEDS: NOREPINEPHRINE 8 MG/250ML KIT 250 ML IV SCH (13:00)
[2022-02-18] MEDS: MIDAZOLAM DRIP 50 mg/50mL 50 ML IV SCH (15:00)
[2022-02-18] MEDS: fentaNYL Drip 2500mCg/250mlNS 250 ML IV SCH (15:00)
[2022-02-18] MEDS ORDERED: TPN PER PHARMACY IV NR ×19 (20:00)
[2022-02-19] VITALS (47 sets, daily range): BP systolic 74–202; BP diastolic 35–170
[2022-02-19] MEDS: ACCU-CHEK COMFORT CURVE STRIP VI SCH ×5 (00:04→18:00)
[2022-02-19] MEDS: MORPHINE SULFATE INJ 2 MG/ml SYRG IV PRN ×4 (02:42→20:29)
[2022-02-19 03:13] LABS: Basophils # (auto) 0 10 ^3/uL (0-0.2); Basophils % (auto) 0.5 % (0.0-2.0); Eosinophils # (auto) 0 10 ^3/uL (0-0.8); Eosinophils % (auto) 0.6 % (0.0-7.0); Hematocrit 26.1 % (36.0-46.0); Hemoglobin 8.9 g/dL (12.2-16.2); Lymphocytes # (auto) 0.6 10 ^3/uL (0.4-5.4); Lymphocytes % (auto) 8.4 % (10.0-50.0); Mean Corpuscular Hgb Conc. 34.1 g/dL (32.0-36.0); Mean Corpuscular Volume 85.2 fL (80.0-100.0); Monocytes # (auto) 0.3 10 ^3/uL (0-1.3); Monocytes % (auto) 4.4 % (0.0-12.0); Neutrophils # (auto) 6.5 10 ^3/uL (1.6-8.6); Neutrophils % (auto) 86.1 % (37.0-80.0); Red Blood Cells 3.06 10^6/uL (4.0-5.20); White Blood Cell 7.6 10^3/uL (4.4-10.8)
[2022-02-19 03:30] LABS: Albumin 2.2 g/dL (3.4-5.0); Calcium 7.4 mg/dL (8.5-10.1); Magnesium 2.1 mg/dL (1.6-2.6); Potassium 4.2 mmol/L (3.5-5.1)
[2022-02-19 03:33] LABS: Bilirubin, Total 0.2 mg/dL (0.2-1.0); Phosphorus 3.4 mg/dL (2.5-4.90); Total Protein 4.3 g/dL (6.4-8.2)
[2022-02-19] MEDS: InsuLIN REG 1unit/0.01ml Soln (100units/ml) SC SCH ×5 (04:00→18:00)
[2022-02-19] MEDS: cefTRIAXone 1GM/50ML D5W 50 ML IV SCH (09:41)
[2022-02-19] MEDS: PANTOPRAZOLE 40 MG/10 ML VIAL INJ IV SCH (09:41)
[2022-02-19] MEDS: AZITHROMYCIN 500MG/ 250ML 250 ML IV SCH (09:41)
[2022-02-19] MEDS: SODIUM CHLOR 0.9% PF (SALINE LOCK) 10ML VIAL/SYR IV SCH ×2 (09:42→22:00)
[2022-02-19] MEDS: NICOTINE 14 MG/24HR TOPICAL PATCH TD SCH (09:43)
[2022-02-19] MEDS: ENOXAPARIN SOD 30 MG/0.3 ML SYRINGE SC SCH (10:00)
[2022-02-19] MEDS: NOREPINEPHRINE 8 MG/250ML KIT 250 ML IV SCH (13:00)
[2022-02-19] MEDS: fentaNYL Drip 2500mCg/250mlNS 250 ML IV SCH (14:05)
[2022-02-19] MEDS: MIDAZOLAM DRIP 50 mg/50mL 50 ML IV SCH (14:08)
[2022-02-19] MEDS ORDERED: InsuLIN REG 1unit/0.01ml Soln (100units/ml) SC SCH (16:45)
[2022-02-19] MEDS ORDERED: DEXTROSE (50%) 50ML SYRG IV PRN (16:45)
[2022-02-19] MEDS ORDERED: ACCU-CHEK COMFORT CURVE STRIP VI SCH (16:45)
[2022-02-19] MEDS ORDERED: TPN PER PHARMACY IV NR ×10 (20:00)
[2022-02-20] VITALS (19 sets, daily range): BP systolic 103–137; BP diastolic 40–60
[2022-02-20] MEDS: MORPHINE SULFATE INJ 2 MG/ml SYRG IV PRN ×4 (00:28→14:08)
[2022-02-20] MEDS: ACCU-CHEK COMFORT CURVE STRIP VI SCH ×4 (00:29→17:42)
[2022-02-20 05:22] LABS: Basophils # (auto) 0 10 ^3/uL (0-0.2); Basophils % (auto) 0.7 % (0.0-2.0); Eosinophils # (auto) 0 10 ^3/uL (0-0.8); Eosinophils % (auto) 0.4 % (0.0-7.0); Hematocrit 27.9 % (36.0-46.0); Hemoglobin 9.5 g/dL (12.2-16.2); Lymphocytes # (auto) 0.6 10 ^3/uL (0.4-5.4); Lymphocytes % (auto) 8.7 % (10.0-50.0); Mean Corpuscular Hemoglobin 29.1 pg (28.0-32.0); Mean Corpuscular Volume 85.5 fL (80.0-100.0); Monocytes # (auto) 0.3 10 ^3/uL (0-1.3); Neutrophils % (auto) 85.2 % (37.0-80.0); Red Blood Cells 3.27 10^6/uL (4.0-5.20); Red Cell Distribution Width 16.9 % (11.8-14.3)
[2022-02-20 05:38] LABS: Albumin 2.1 g/dL (3.4-5.0); Calcium 7.3 mg/dL (8.5-10.1); Magnesium 2.5 mg/dL (1.6-2.6); Potassium 4.1 mmol/L (3.5-5.1)
[2022-02-20 05:42] LABS: BUN/Creatinine Ratio 47.9; Bilirubin, Total 0.2 mg/dL (0.2-1.0); Phosphorus 3.5 mg/dL (2.5-4.90); Total Protein 4.6 g/dL (6.4-8.2)
[2022-02-20] MEDS: ONDANSETRON HCL 4 MG/2 ML VIAL IV PRN ×3 (05:53→14:09)
[2022-02-20] MEDS: InsuLIN REG 1unit/0.01ml Soln (100units/ml) SC SCH ×4 (06:00→17:42)
[2022-02-20] MEDS: cefTRIAXone 1GM/50ML D5W 50 ML IV SCH (08:27)
[2022-02-20] MEDS: PANTOPRAZOLE 40 MG/10 ML VIAL INJ IV SCH (09:39)
[2022-02-20] MEDS: AZITHROMYCIN 500MG/ 250ML 250 ML IV SCH (09:40)
[2022-02-20] MEDS: SODIUM CHLOR 0.9% PF (SALINE LOCK) 10ML VIAL/SYR IV SCH ×2 (09:40→21:09)
[2022-02-20] MEDS: ENOXAPARIN SOD 30 MG/0.3 ML SYRINGE SC SCH (10:00)
[2022-02-20] MEDS: NICOTINE 14 MG/24HR TOPICAL PATCH TD SCH (10:09)
[2022-02-20] MEDS ORDERED: TPN PER PHARMACY IV NR ×10 (20:00)
[2022-02-21 04:41] VITALS: BP 90/84
[2022-02-21 04:45] VITALS: BP 100/48
[2022-02-21] MEDS: InsuLIN REG 1unit/0.01ml Soln (100units/ml) SC SCH ×5 (06:00→23:57)
[2022-02-21] MEDS: ACCU-CHEK COMFORT CURVE STRIP VI SCH ×4 (06:00→17:39)
[2022-02-21 07:07] LABS: Albumin 1.8 g/dL (3.4-5.0); Calcium 6.9 mg/dL (8.5-10.1); Magnesium 2.3 mg/dL (1.6-2.6); Potassium 3.8 mmol/L (3.5-5.1)
[2022-02-21 07:11] LABS: BUN/Creatinine Ratio 49.3; Bilirubin, Total 0.3 mg/dL (0.2-1.0); Phosphorus 3.3 mg/dL (2.5-4.90); Total Protein 4.1 g/dL (6.4-8.2)
[2022-02-21 08:00] VITALS: BP_SYST 136; BP_SYST 96; BP_DIAS 56; BP_DIAS 75
[2022-02-21] MEDS: cefTRIAXone 1GM/50ML D5W 50 ML IV SCH (09:30)
[2022-02-21] MEDS: SODIUM CHLOR 0.9% PF (SALINE LOCK) 10ML VIAL/SYR IV SCH (09:31)
[2022-02-21] MEDS: ENOXAPARIN SOD 30 MG/0.3 ML SYRINGE SC SCH (09:31)
[2022-02-21] MEDS: AZITHROMYCIN 500MG/ 250ML 250 ML IV SCH (09:31)
[2022-02-21] MEDS: PANTOPRAZOLE 40 MG/10 ML VIAL INJ IV SCH (09:31)
[2022-02-21] MEDS: NICOTINE 14 MG/24HR TOPICAL PATCH TD SCH (09:33)
[2022-02-21 12:00] VITALS: BP 100/48
[2022-02-21 16:00] VITALS: BP 114/43
[2022-02-21] MEDS ORDERED: TPN PER PHARMACY IV NR ×20 (20:00)
[2022-02-21 22:00] VITALS: BP 94/43
[2022-02-22 05:00] VITALS: BP 103/41
[2022-02-22] MEDS: InsuLIN REG 1unit/0.01ml Soln (100units/ml) SC SCH ×3 (05:11→18:00)
[2022-02-22] MEDS: ACCU-CHEK COMFORT CURVE STRIP VI SCH ×4 (05:12→18:12)
[2022-02-22] MEDS: SODIUM CHLOR 0.9% PF (SALINE LOCK) 10ML VIAL/SYR IV SCH ×2 (05:12→09:45)
[2022-02-22 05:31] LABS: Basophils # (auto) 0 10 ^3/uL (0-0.2); Basophils % (auto) 0.4 % (0.0-2.0); Lymphocytes # (auto) 0.4 10 ^3/uL (0.4-5.4); Monocytes # (auto) 0.2 10 ^3/uL (0-1.3); Nucleated Red Blood Cells % 0.1 %; Red Cell Distribution Width 16.9 % (11.8-14.3)
[2022-02-22 05:34] LABS: Eosinophils # (auto) 0.1 10 ^3/uL (0-0.8); Eosinophils % (auto) 0.9 % (0.0-7.0); Lymphocytes % (auto) 7.2 % (10.0-50.0); Mean Corpuscular Hemoglobin 29.8 pg (28.0-32.0); Mean Corpuscular Hgb Conc. 35.3 g/dL (32.0-36.0); Mean Corpuscular Volume 84.4 fL (80.0-100.0); Monocytes % (auto) 3.2 % (0.0-12.0); Neutrophils # (auto) 4.9 10 ^3/uL (1.6-8.6); Neutrophils % (auto) 88.3 % (37.0-80.0); Red Blood Cells 2.73 10^6/uL (4.0-5.20); White Blood Cell 5.5 10^3/uL (4.4-10.8)
[2022-02-22 05:46] LABS: Potassium 3.5 mmol/L (3.5-5.1)
[2022-02-22 05:51] LABS: Albumin 1.6 g/dL (3.4-5.0); BUN/Creatinine Ratio 56.5; Calcium 7.1 mg/dL (8.5-10.1); Magnesium 2.1 mg/dL (1.6-2.6)
[2022-02-22 05:54] LABS: Bilirubin, Total 0.3 mg/dL (0.2-1.0); Phosphorus 3.1 mg/dL (2.5-4.90); Total Protein 4.2 g/dL (6.4-8.2)
[2022-02-22 06:14] LABS: Hemoglobin 8.1 g/dL (12.2-16.2)
[2022-02-22 09:00] VITALS: BP 103/49
[2022-02-22] MEDS: ENOXAPARIN SOD 30 MG/0.3 ML SYRINGE SC SCH (09:22)
[2022-02-22] MEDS: PANTOPRAZOLE 40 MG/10 ML VIAL INJ IV SCH (09:22)
[2022-02-22] MEDS: cefTRIAXone 1GM/50ML D5W 50 ML IV SCH (09:22)
[2022-02-22] MEDS: NICOTINE 14 MG/24HR TOPICAL PATCH TD SCH (09:34)
[2022-02-22] MEDS ORDERED: TPN PER PHARMACY IV NR ×11 (20:00)
[2022-02-22 22:07] VITALS: BP 101/55
[2022-02-23] MEDS: SODIUM CHLOR 0.9% PF (SALINE LOCK) 10ML VIAL/SYR IV SCH ×2 (00:14→10:22)
[2022-02-23] MEDS: ACCU-CHEK COMFORT CURVE STRIP VI SCH ×2 (00:15→06:49)
[2022-02-23 05:24] VITALS: BP 98/43
[2022-02-23] MEDS: InsuLIN REG 1unit/0.01ml Soln (100units/ml) SC SCH ×2 (06:00)
[2022-02-23 06:06] LABS: Potassium 3.8 mmol/L (3.5-5.1)
[2022-02-23 06:19] LABS: Albumin 1.7 g/dL (3.4-5.0); BUN/Creatinine Ratio 63.8; Bilirubin, Total 0.3 mg/dL (0.2-1.0); Calcium 7.1 mg/dL (8.5-10.1); Magnesium 2.2 mg/dL (1.6-2.6); Phosphorus 3.7 mg/dL (2.5-4.90); Total Protein 4.2 g/dL (6.4-8.2)
[2022-02-23 09:00] VITALS: BP 105/45
[2022-02-23] MEDS ORDERED: MORPHINE SULFATE INJ 2 MG/ml SYRG IV PRN (09:30)
[2022-02-23] MEDS: ENOXAPARIN SOD 30 MG/0.3 ML SYRINGE SC SCH (10:22)
[2022-02-23] MEDS: PANTOPRAZOLE 40 MG/10 ML VIAL INJ IV SCH (10:22)
[2022-02-23] MEDS: NICOTINE 14 MG/24HR TOPICAL PATCH TD SCH (10:23)
[2022-02-23] MEDS: ONDANSETRON HCL 4 MG/2 ML VIAL IV PRN (10:28)
[2022-02-23 11:33] VITALS: BP 116/43
== END 2022-02-23 12:56 | disposition hospice, home (50) | DRG 329 ==
LOC: EDBD 10:17 → ER 10:17 → OVERFLOW 15:09 → EAST 18:29 → TELE-EAST 02-14 17:59 → ICU WEST 02-15 16:04 → ICU CENTRL 02-19 07:50 → DOU IN ICU 02-19 15:49 → TELE-WESTW 02-20 16:40
PROVIDERS: ADMIT Nurse Practitioner Family; ATTEND Internal Medicine Geriatric Medicine
PROC: 0D9670Z Drainage of Stomach with Drainage Device, Via Natural or Artificial Opening (ICD-10-PCS; 2022-02-11)
PROC: 0W9B3ZZ Drainage of Left Pleural Cavity, Percutaneous Approach (ICD-10-PCS; 2022-02-13)
PROC: 0D1L0Z4 Bypass Transverse Colon to Cutaneous, Open Approach (ICD-10-PCS; 2022-02-15)
PROC: 5A1945Z Respiratory Ventilation, 24-96 Consecutive Hours (ICD-10-PCS; 2022-02-15)
PROC: 0BH17EZ Insertion of Endotracheal Airway into Trachea, Via Natural or Artificial Opening (ICD-10-PCS; 2022-02-15)
PROC: 0DTF0ZZ Resection of Right Large Intestine, Open Approach (ICD-10-PCS; principal; 2022-02-15 12:56)
PROC: 02HV33Z Insertion of Infusion Device into Superior Vena Cava, Percutaneous Approach (ICD-10-PCS; 2022-02-16)
PROC: B548ZZA Ultrasonography of Superior Vena Cava, Guidance (ICD-10-PCS; 2022-02-16)
DX: K56.600 Partial intestinal obstruction, unspecified as to cause (principal); J18.9 Pneumonia, unspecified organism; J96.01 Acute respiratory failure with hypoxia; R64 Cachexia; J98.11 Atelectasis; R18.8 Other ascites; N17.9 Acute kidney failure, unspecified; E87.20 Acidosis, unspecified; R57.9 Shock, unspecified; Z68.1 Body mass index [BMI] 19.9 or less, adult; J90 Pleural effusion, not elsewhere classified; C18.0 Malignant neoplasm of cecum; K21.9 Gastro-esophageal reflux disease without esophagitis; G62.9 Polyneuropathy, unspecified; Z20.822 Contact with and (suspected) exposure to COVID-19; R00.1 Bradycardia, unspecified; Z66 Do not resuscitate; R54 Age-related physical debility; R73.9 Hyperglycemia, unspecified; E16.2 Hypoglycemia, unspecified; E78.5 Hyperlipidemia, unspecified; E83.42 Hypomagnesemia; E87.6 Hypokalemia; Z51.5 Encounter for palliative care; Z88.7 Allergy status to serum and vaccine; Z88.5 Allergy status to narcotic agent; Z90.710 Acquired absence of both cervix and uterus
CPT/HCPCS: 36415; 36569; 36600; 71045; 74176; 74250; 80048; 80053; 81001; 82150; 82378; 82570; 82805; 82962; 83036; 83605; 83690; 83735; 83986; 84100; 84156; 84300; 84478; 85025; 85610; 85730; 86850; 86900; 86901; 87070; 87081; 87205; 87426; 89051; 93005; 93306; 94002; 94003; 94640; 96361; 96374; 96375; 97110; 97163; 97530; C9113; G0378; J0330; J0696; J1100; J1815; J2250; J2405; J3480; J3490; J7042; J7060; J7131; P9047